=== PATIENT | male | born 1970 | race Caucasian/White ===

== ENCOUNTER 2022-09-28 12:48 | Day surgery (SDC) | payer OTHER ==
[2022-09-27 09:20] VITALS: BMI 21.8
[2022-09-28] MEDS ORDERED: MIDAZOLAM HCL 2 MG/2 ML SINGLE DOSE VIAL ONE (13:09)
[2022-09-28] MEDS ORDERED: ceFAZolin SODIUM 1 GM VIAL ONE ×2 (13:10→13:13)
[2022-09-28] MEDS ORDERED: SEVOFLURANE 250 ML BTL ONE ×2 (13:11→13:12)
[2022-09-28] MEDS ORDERED: LIDOCAINE HCL/PF 2% SDV 5ML VIAL ONE (13:12)
[2022-09-28] MEDS ORDERED: ROPIVACAINE HCL 0.5% 30ML VIAL ONE (13:17)
[2022-09-28] MEDS ORDERED: BUPIVACAINE HCL/PF 0.5% (5MG/ML) 10 ML VIAL ONE (14:20)
[2022-09-28] MEDS ORDERED: DEXAMETHASONE SOD PHOSPHATE 4 MG/1 ML VIAL ONE (14:38)
[2022-09-28] MEDS ORDERED: ONDANSETRON 4 MG/2 ML VIAL ONE (14:38)
[2022-09-28] MEDS ORDERED: ONDANSETRON 4 MG/2 ML VIAL IVPUSH PRN (15:55)
[2022-09-28] MEDS ORDERED: oxyCODONE HCL 5 MG TABLET PO PRN (15:55)
[2022-09-28] MEDS ORDERED: LACTATED RINGERS SOLUTION 1,000 ML IV SCH (16:00)
[2022-09-28 17:44] VITALS: TEMP 97.8
[2022-09-28 17:46] VITALS: BP 125/74; PULSE 51; RESP 16
== END 2022-09-28 17:30 | disposition home or self-care (01) ==
LOC: FASU 12:48
PROVIDERS: ATTEND Orthopaedic Surgery Hand Surgery
PROC: 0LN60ZZ Release Left Lower Arm and Wrist Tendon, Open Approach (ICD-10-PCS; 2022-09-28)
PROC: 0PSJ04Z Reposition Left Radius with Internal Fixation Device, Open Approach (ICD-10-PCS; principal; 2022-09-28 14:46)
DX: S52.572A Other intraarticular fracture of lower end of left radius, initial encounter for closed fracture (principal); X58.XXXA Exposure to other specified factors, initial encounter; Y93.9 Activity, unspecified; Y92.9 Unspecified place or not applicable
CPT/HCPCS: 25290; 25609; C1713; 73110-TC-LT-FY